=== PATIENT | female | born 1970 | race Caucasian/White ===

== ENCOUNTER 2016-09-15 14:52 | Emergency (ER) | payer BC ==
[~2016-09-15] VITALS: Ht 177.8 cm; Wt 123.4 kg
[~2016-09-15 14:52] MED LIST: ALLEGRA180 MG PO; ASPIR 8181 M1 PO; ATIVAN0.5 MG PO; Aspirin E.C. PO; BENICAR HCT 201 EACH PO; BENICAR HCT PO; DOXYCYCLINE HY100 M3 PO; ENDOCET 5-3251 EACH PO; ENTOCORT EC3 MG PO; HYDROCHLOROTHIA25 MG PO; LORATADINE10 M2 PO; MOTRIN800 MG PO; NOLVADEX20 MG PO; NORTRIPTYLINE H10 MG PO; PENTASA250 MG PO; PRILOSEC40 MG PO; PROVENTIL HFA6.7 GM IH; PriLOSEC PO; TAMOXIFEN CITRA20 MG PO; TOPROL XL25 MG PO; VIIBRYD40 MG PO; VITAMIN D1000 INTUN PO; Vicodin,Norco 5/325 PO; WELLBUTRIN; [UNRECOGNIZED DRUG - OTHER]; [UNRECOGNIZED DRUG - OTHER] PO
[2016-09-15] MEDS ORDERED: DOXAZOSIN MESYLA1 MG PO (15:28)
[2016-09-15] MEDS ORDERED: VIIBRYD40 MG PO (15:28)
[2016-09-15] MEDS ORDERED: POTASSIUM CHLO20 ME2 PO (15:29)
[2016-09-15] MEDS ORDERED: AMLODIPINE BESY10 MG PO (15:29)
[2016-09-15] MEDS ORDERED: MULTIPLE VITAM1 EACH PO (15:29)
[2016-09-15] MEDS ORDERED: CALCIUM 600 MG1 EACH PO (15:30)
[2016-09-15] MEDS ORDERED: OMEGA 3-6-9 11200 MG PO (15:31)
[2016-09-15 15:50] LABS: EOSINOPHIL (%) 1.2 % (0-5); EOSINOPHIL COUNT 0.1 K/uL (0-0.3); HEMATOCRIT 40.2 % (36.0-46.0); IMMATURE GRANULOCYTE (%) 0.2 % (0.0-0.7); INSTRUMENT ABS NEUTROPHIL CT 3.2 K/uL; LYMPHOCYTE COUNT 1.7 K/uL (1.0-2.8); MCH 28.6 PG (29.0-34.0); MCHC 33.8 G/DL (30.0-36.0); MCV 84.5 FL (83-99); MEAN PLAT.VOLUME 9.6 uM^3 (9.5-12.4); MONOCYTE (%) 4.4 % (3-12); MONOCYTE COUNT 0.2 K/uL (0-0.8); NEUTROPHIL (%) 61.9 % (45-76); NEUTROPHIL COUNT 3.2 K/uL (1.8-6.4); PLATELET COUNT 151 K/uL (156-360); RBC DIS.WIDTH-CV 12.7 % (11.8-14.6); RBC DIS.WIDTH-SD 38.5 % (39-53); RED BLOOD COUNT 4.76 M/uL (3.80-5.20); WHITE BLOOD COUNT 5.2 K/uL (4.1-10.2)
[2016-09-15 16:01] LABS: CHLORIDE 109 mEq/L (99-109); POTASSIUM 3.7 mEq/L (3.7-5.4); SODIUM 140 mEq/L (136-147)
[2016-09-15 16:03] LABS: ADD MIUA? YES; BILIRUBIN NEGATIVE; BLOOD SMALL; COLOR STRAW ((YELLOW)); GLUCOSE (STRIP) NEGATIVE; KETONES 5; LEUKOCYTES NEGATIVE; NITRITE NEGATIVE; PROTEIN (STRIP) NEGATIVE; SPECIFIC GRAVITY 1.009 (1.000-1.030); UROBILINOGEN 0.2 MG/DL (0.2-1.0)
[2016-09-15 16:03] LABS: GLUCOSE 99 mg/dL (70-99)
[2016-09-15 16:04] LABS: ANION GAP 9 MEQ/L (2-14)
[2016-09-15 16:06] LABS: GFR ESTIMATE (CALCULATED) > 59 mL/min/
[2016-09-15 16:07] LABS: UREA NITROGEN (BUN) 13 mg/dL (9-23)
[2016-09-15 16:08] LABS: BACTERIA RARE /HPF; EPITHELIAL CELLS RARE /HPF; MUCUS TRACE /LPF; RED BLOOD CELLS 0-5 /HPF (0-5); UNCLASSIFIED CASTS 0-5 /LPF; WHITE BLOOD CELLS 0-5 /HPF (0-5)
[2016-09-15] MEDS ORDERED: ANTIVERT25 MG PO (19:05)
[2016-09-15 19:15] VITALS: BP 148/97
== END 2016-09-15 19:19 | disposition home or self-care (01) ==
LOC: EME 14:52
PROVIDERS: Emergency Medicine
DX: R42 Dizziness and giddiness (principal); I10 Essential (primary) hypertension; Z88.2 Allergy status to sulfonamides; Z88.0 Allergy status to penicillin
CPT/HCPCS: 70450; 80048; 81003; 85025; 93005; 99281; 99285